=== PATIENT | female | born 1945 | race Caucasian/White ===

== ENCOUNTER → 2023-07-27 14:44 | Outpatient (REF) | payer OTHER, SELFPAY | LOC: WDC 14:44 | PROVIDERS: ATTENDING PHYSICIAN Internal Medicine | DX: Z12.31 Encounter for screening mammogram for malignant neoplasm of breast (principal) | CPT/HCPCS: 77063; 77067 ==

== ENCOUNTER → 2023-08-10 19:27 | Outpatient (REF) | payer OTHER, SELFPAY | LOC: MRI 19:27 | PROVIDERS: ATTENDING PHYSICIAN Physician Assistant Medical; FAMILY PHYSICIAN Internal Medicine | DX: M25.511 Pain in right shoulder (principal) | CPT/HCPCS: 73221 ==

== ENCOUNTER → 2023-10-03 15:04 | Outpatient (REF) | payer OTHER, SELFPAY ==
[2023-10-03 16:37] LABS: Blood Urea Nitrogen 13 mg/dl (7-17); Calcium 9.5 mg/dl (8.4-10.2); Carbon Dioxide 29 mmol/L (22-30); Chloride 102 mmol/L (98-107); Glucose 114 mg/dl (70-99); Potassium 3.8 mmol/L (3.5-5.1); Sodium 140 mmol/L (135-145); eGFR > 60.00
== END ==
LOC: RCS 15:04
PROVIDERS: ATTENDING PHYSICIAN Orthopaedic Surgery Hand Surgery; FAMILY PHYSICIAN Internal Medicine
DX: Z01.818 Encounter for other preprocedural examination (principal)
CPT/HCPCS: 36415; 80048; 93005

== ENCOUNTER → 2023-12-05 09:15 | Outpatient (REF) | payer OTHER, SELFPAY | LOC: RCS 09:15 | PROVIDERS: ATTENDING PHYSICIAN Internal Medicine Cardiovascular Disease; FAMILY PHYSICIAN Nurse Practitioner Adult Health | DX: I38 Endocarditis, valve unspecified (principal); R07.89 Other chest pain | CPT/HCPCS: 93306 ==

== ENCOUNTER → 2023-12-07 09:00 | Outpatient (REF) | payer OTHER, SELFPAY | LOC: RCS 09:00 | PROVIDERS: ATTENDING PHYSICIAN Internal Medicine Cardiovascular Disease; FAMILY PHYSICIAN Nurse Practitioner Adult Health | DX: R07.89 Other chest pain (principal) | CPT/HCPCS: 93017; 93350 ==

== ENCOUNTER → 2024-08-05 18:14 | Outpatient (REF) | payer OTHER, SELFPAY | LOC: WDC 18:14 | PROVIDERS: ATTENDING PHYSICIAN Nurse Practitioner Adult Health | DX: Z12.31 Encounter for screening mammogram for malignant neoplasm of breast (principal) | CPT/HCPCS: 77063; 77067 ==

== ENCOUNTER → 2024-08-06 10:45 | Outpatient (REF) | payer OTHER, SELFPAY | LOC: RAD 10:45 | PROVIDERS: ATTENDING PHYSICIAN Nurse Practitioner Adult Health | DX: M81.0 Age-related osteoporosis without current pathological fracture (principal) | CPT/HCPCS: 77080 ==

== ENCOUNTER → 2024-08-09 11:14 | Outpatient (REF) | payer OTHER, SELFPAY | LOC: RAD 11:14 | PROVIDERS: ATTENDING PHYSICIAN Student in an Organized Health Care Education/Training Program; FAMILY PHYSICIAN Nurse Practitioner Adult Health | DX: M25.562 Pain in left knee (principal) | CPT/HCPCS: 76882 ==

== ENCOUNTER → 2025-03-04 11:58 | Outpatient (REF) | payer OTHER, SELFPAY | LOC: RAD 11:58 | PROVIDERS: ATTENDING PHYSICIAN Student in an Organized Health Care Education/Training Program; FAMILY PHYSICIAN Nurse Practitioner Adult Health; OTHER PHYSICIAN Dermatology Dermatopathology; OTHER PHYSICIAN Internal Medicine Cardiovascular Disease; OTHER PHYSICIAN Internal Medicine Endocrinology, Diabetes & Metabolism | DX: I73.00 Raynaud's syndrome without gangrene (principal); L98.9 Disorder of the skin and subcutaneous tissue, unspecified; R21 Rash and other nonspecific skin eruption; R77.8 Other specified abnormalities of plasma proteins; R79.82 Elevated C-reactive protein (CRP); R80.9 Proteinuria, unspecified | CPT/HCPCS: 71250 ==

== ENCOUNTER 2025-04-30 06:32 | Outpatient (RCR) | payer OTHER, SELFPAY | END 2025-04-30 23:59 | disposition home or self-care (01) | LOC: RPT 06:32 | PROVIDERS: ATTENDING PHYSICIAN Student in an Organized Health Care Education/Training Program; FAMILY PHYSICIAN Nurse Practitioner Adult Health | DX: M17.12 Unilateral primary osteoarthritis, left knee (principal); M76.32 Iliotibial band syndrome, left leg; Z73.6 Limitation of activities due to disability; M62.81 Muscle weakness (generalized) | CPT/HCPCS: 97110; 97162 ==